=== PATIENT | female | born 1940 | race Caucasian/White ===

== ENCOUNTER 2018-12-12 08:04 | Day surgery (SDC) | payer OTHER, MEDICARE ==
[2018-12-08 12:05] VITALS: BMI 17.8
[2018-12-12 08:26] VITALS: TEMP 97.5
[2018-12-12] MEDS ORDERED: PROPOFOL 20 ML ONE ×2 (08:44)
[2018-12-12 10:10] VITALS: PULSE 64
[2018-12-12 10:37] VITALS: BP 128/70
--- NOTE | 2018-12-14 15:54 | PATH ---
Surgical Pathology Report Patient Name: LIBBY ONOFRE [facility]. Rec. #: [id number] /Age/Gender: 1940 (Age: 78) / F Account: [id number] Location: [facility] Taken: 12/12/2018 Received: 12/12/2018 Reported: 12/14/2018 Physicians: Kevin Ascencio M.D. Specimen(s) Received A: BX POLYP CECUM B: HOT SNARE POLYPECTOMY RIGHT COLON C: HOT SNARE POLYPECTOMY LEFT COLON Clinical History Constipation Postoperative diagnosis: Colon polyp, diverticulosis Final Diagnosis A. CECUM POLYP, POLYPECTOMY: HYPERPLASTIC POLYP. B. RIGHT COLON POLYP, POLYPECTOMY: TUBULAR ADENOMA. C. LEFT COLON POLYP, POLYPECTOMY: TUBULAR ADENOMA. Electronically Signed Neva Mo M.D. Gross Description A. Received in formalin, labeled "biopsy polyp cecum" is a gonzales, polypoid portion of soft tissue measuring 0.8 cm. in greatest dimension. The specimen is submitted in toto in one cassette. B. Received in formalin, labeled "polypectomy right colon" is a gonzales, polypoid portion of soft tissue measuring 0.4 cm. in greatest dimension. The specimen is submitted in toto in one cassette. C. Received in formalin, labeled "polypectomy left colon" is a gonzales, polypoid portion of soft tissue measuring 0.5 cm. in greatest dimension. The specimen is submitted in toto in one cassette. 12/13/2018 saudi12/13/2018
== END 2018-12-12 10:25 | disposition home or self-care (01) ==
LOC: FASU-ENDO 08:04
PROVIDERS: ATTEND Internal Medicine Gastroenterology
PROC: 0DBM8ZX Excision of Descending Colon, Via Natural or Artificial Opening Endoscopic, Diagnostic (ICD-10-PCS; 2018-12-12)
PROC: 0DBH8ZX Excision of Cecum, Via Natural or Artificial Opening Endoscopic, Diagnostic (ICD-10-PCS; 2018-12-12)
PROC: 0DBK8ZX Excision of Ascending Colon, Via Natural or Artificial Opening Endoscopic, Diagnostic (ICD-10-PCS; principal; 2018-12-12 08:54)
DX: D12.2 Benign neoplasm of ascending colon (principal); D12.4 Benign neoplasm of descending colon; K63.5 Polyp of colon; K57.30 Diverticulosis of large intestine without perforation or abscess without bleeding; K59.00 Constipation, unspecified
CPT/HCPCS: 88305-TC